=== PATIENT | female | born 1950 | race Caucasian/White ===

== ENCOUNTER → 2021-10-28 | Day surgery (SDC) | payer MEDICARE ==
[~2021-10-28] VITALS: Ht 158 cm; Wt 96.7 kg
[~2021-10-28] MED LIST: 8 HOUR650 MG PO; ALLOPURINOL300 MG PO; LISINOPRIL-HCT1 EAC2 PO; METFORMIN HCL1000 MG PO; METFORMIN HCL500 MG PO; SYNTHROID125 MCG PO; TRAZODONE 150M150 MG PO; VITAMIN D250 MCG PO; ZOCOR20 MG PO
[2021-10-28 08:28] LABS: HCT 36.7 % (37.0-47.0); HGB 12.7 g/dl (12.5-16.0); MCH 32.4 pg (25.0-31.0); MCHC 34.6 g/dL (32.0-36.0); MCV 93.6 fL (78.0-100.0); MPV 10.8 fL (6.0-9.5); RBC 3.92 M/uL (4.20-5.40); RDW 13.8 % (11.5-14.0); WBC 8.6 K/uL (4.0-10.5)
[2021-10-28 08:38] LABS: ALBUMIN 3.6 g/dL (3.4-5.0); BILIRUBIN - TOTAL 0.4 mg/dL (0.2-1.0); BUN/CREAT RATIO (CALC) 17.7 RATIO; CREATININE 0.96 mg/dL (0.51-0.95); GLOBULIN (CALCULATION) 3.5 g/dL; POTASSIUM 3.9 mmol/L (3.5-5.1); TOTAL PROTEIN 7.1 g/dL (6.4-8.2)
== END | disposition home or self-care (01) ==
LOC: FAS 07:25
PROVIDERS: Surgery
DX: Z12.11 Encounter for screening for malignant neoplasm of colon (principal); D12.0 Benign neoplasm of cecum; K57.30 Diverticulosis of large intestine without perforation or abscess without bleeding; I10 Essential (primary) hypertension; E11.9 Type 2 diabetes mellitus without complications; E03.9 Hypothyroidism, unspecified; Z86.010 Personal history of colon polyps; E78.00 Pure hypercholesterolemia, unspecified; Z79.84 Long term (current) use of oral hypoglycemic drugs; Z79.891 Long term (current) use of opiate analgesic; Z79.899 Other long term (current) drug therapy
CPT/HCPCS: 36415; 80053; J1610; J7120